=== PATIENT | female | born 1985 | race Caucasian/White ===

== ENCOUNTER 2020-08-23 04:55 | Emergency (ER) | payer OTHER ==
[~2020-08-23] VITALS: Ht 154.9 cm; Wt 43.5 kg
[2020-08-23 05:00] VITALS: BP 135/78
== END 2020-08-23 05:12 ==
LOC: MED 04:55
DX: Z04.1 Encounter for examination and observation following transport accident (principal); V49.9XXA Car occupant (driver) (passenger) injured in unspecified traffic accident, initial encounter; Y93.89 Activity, other specified; Y92.89 Other specified places as the place of occurrence of the external cause; Y99.8 Other external cause status
CPT/HCPCS: 90471; 90715; 99283